=== PATIENT | female | born 1940 | race Caucasian/White ===

== ENCOUNTER 2023-11-27 03:56 | Inpatient (IN) | payer MEDICARE, SELFPAY ==
[2023-11-26 21:01] VITALS: BP 156/59; BMI 32.9
[2023-11-26 21:04] VITALS: BP 156/59
[2023-11-26 21:58] LABS: % Basophils 2.8 % (0-2); % Eosinophils 2.1 % (0-6); % Immature Granulocytes 1.4 % (0-0.5); % Lymphocytes 14.6 % (20.5-51.1); % Monocytes 5.6 % (1.7-9.3); % Neutrophils 73.5 % (42.2-75.2); Absolute Lymphocytes 0.2 10^3/uL (1.2-3.4); Absolute Monocytes 0.1 10^3/uL (0.1-0.6); Absolute Neutrophils 1.1 10^3/uL (1.4-6.5); Hematocrit 30.9 % (37.0-47.0); Hemoglobin 10.5 g/dL (12.0-16.0); Mean Corpuscular Hgb 30.6 pg (27.0-31.0); Mean Corpuscular Volume 90.1 fL (81.0-99.0); Nucleated Red Blood Cells % 2.8 %; Platelet Count 68 10^3/uL (130-400); Red Blood Cell Count 3.43 10^6/uL (4.20-5.40); Red Cell Dist. Width 15.9 % (11.5-14.5)
[2023-11-26 22:00] VITALS: BP 130/38
[2023-11-26 22:00] LABS: Lactic Acid 1.4 mmol/L (0.7-2.0)
[2023-11-26 22:03] LABS: INR 1.79
[2023-11-26 22:07] LABS: COVID-19 Antigen Negative (Negative)
[2023-11-26 22:09] LABS: ALT (SGPT) 25 U/L (0-35); AST (SGOT) 36 U/L (14-36); Albumin 4.2 g/dl (3.5-5.0); Alkaline Phosphatase 138 U/L (38-126); Blood Urea Nitrogen 24 mg/dl (7-17); Calcium 9.7 mg/dl (8.4-10.2); Carbon Dioxide 26 mmol/L (22-30); Chloride 103 mmol/L (98-107); Estimated Creatinine Clearance 67 ml/min; Glucose 194 mg/dl (70-99); Potassium 3.4 mmol/L (3.5-5.1); Sodium 137 mmol/L (135-145); Total Bilirubin 1.1 mg/dl (0.2-1.3); Total Protein 6.7 g/dl (6.3-8.2); eGFR > 60.00
[2023-11-26 22:12] LABS: NT-proBNP 1040 pg/ml; Troponin I < 0.012 ng/ml
[2023-11-26 22:33] LABS: White Blood Cell Count 1.4 10^3/uL (4.8-10.8)
--- NOTE | 2023-11-26 23:45 | EDRN ---
arrived in pt room for an introduction. Pt reported 'feeling better'. SpO2 93% on 4 L NC. Pt taken off O2 support after 2 minutes pt reported 'Feeling fine' but SpO2 was 86% on RA. Pt placed back on O2 Support 4L. Pt tolerating procedure and in no
acute distress.
[2023-11-27] VITALS (12 sets, daily range): BP systolic 99–157; BP diastolic 41–72; PULSE 62; O2SAT 95; BMI 32.0
[2023-11-27] MEDS: ROCEPHIN 2000 MG IV (00:10)
[2023-11-27] MEDS: ZITHROMAX INFUSION 250 IV (00:28)
--- NOTE | 2023-11-27 00:55 | ED.GENMED ---
History of Present Illness
General
Chief Complaint: Breathing Problem
Source: patient
Exam Limitations: none
Time Seen by Provider: 11/26/23 21:15
Nursing documentation reviewed up to this point in time: agreed with
Travel History
Have you had any contact with someone who has COVID-19?: No
Do you have any symptoms of coronavirus? Fever > 100 degrees, chills, cough, shortness of breath, sore throat, loss of taste or smell, muscle aches, or headache?: Yes
Symptoms:: SOB, FEVER
History of Present Illness
History of Present Illness:
83-year-old female presenting to the emergency department today with concerns of fever chills some degree of cough shortness of breath over the past few hours prior to arrival. Does have a history of paroxysmal A-fib currently paced, CAD
hypertension hyperlipidemia and diabetes. Denies specific chest pain abdominal pain nausea vomiting. Did get a pneumonia vaccination earlier today
Past History
Past History
ED Past Medical History: Arrthythmia (Atrial fibrillation), Cancer (Breast) and Other (Diverticulosis)
ED Past Surgical History: Other (noncontributory)
Social History
Tobacco: Non-smoker
Personal:
Review of Systems
Review of Systems
Allergies reviewed?: Yes
All Other Systems: ROS reviewed and negative except as documented in HPI and ROS
Phy Exam
Physical Exam
Physical Exam:
From GENERAL: Alert , in no apparent distress
EYE: pupils equal and reactive
NECK: Supple, no significant adenopathy.
ENT: o/p clr, mmm.
CARDIAC: Regular rate and rhythm .
LUNGS: Clear breath sounds bilaterally, no acute respiratory distress, no wheezes/rales/rhonchi
ABDOMEN: Soft, without focal tenderness, no r/g, no cvat
NEUROLOGICAL: Alert and oriented, no focal neuro deficits
SKIN: Warm and dry, skin intact.
MUSCULOSKELETAL: No edema, well perfused.
PSYCH: Normal and appropriate interaction.
Scores
Heart Failure Risk
Heart Failure Risk Score: Not Applicable
Course
Orders/Labs/Results
Orders:
Orders
11/26/23 20:59
EKG [Electrocardiogram (*1)] Urgent
Reason for Study: Shortness of Breath
EKG- Treatment ONCE
11/26/23 21:38
Complete Blood Count/With Diff Urgent
Comprehensive Metabolic Panel Urgent
Lactic Acid Q4H
Comment: ON ICE, CANCEL 2ND ORDER IF FIRST LACTIC ACID LEVEL <2
Prothrombin Time Urgent
Blood Culture Q30M
JOSE DANIEL Source: Blood/Venous
Specimen Description:
Comment: FROM 2 SEPARATE SITES
11/26/23 21:42
BNP [NT-proBNP] Urgent
COVID-19 Antigen Urgent
Source: Nasal Swab
Troponin I Urgent
Influenza A+B Rapid Molecular Urgent
JOSE DANIEL Source: Nasal Swab
Specimen Description:
11/26/23 22:15
Blood Culture Q30M
JOSE DANIEL Source: Blood/Venous
Specimen Description:
Comment: FROM 2 SEPARATE SITES
11/26/23 22:39
Chest [CR Chest - 2 Views ] Urgent
Comment:
Reason For Exam: cp
11/26/23 23:36
Azithromycin 500 mg/250 ml [Zithromax Infusion] 500 mg in 250 ml IV NOW
CefTRIAXone [Rocephin] 2,000 mg IV NOW STA
11/27/23 01:45
Lactic Acid Q4H
Comment: ON ICE, CANCEL 2ND ORDER IF FIRST LACTIC ACID LEVEL <2
Abnormal Lab Results
11/26/23
21:38
WBC 1.4 L* 10^3/uL
(4.8-10.8)
RBC 3.43 L 10^6/uL
(4.20-5.40)
Hgb 10.5 L g/dL
(12.0-16.0)
Hct 30.9 L %
(37.0-47.0)
RDW 15.9 H %
(11.5-14.5)
Plt Count 68 L 10^3/uL
(130-400)
MPV 11.0 H fL
(7.4-10.4)
Absolute Neuts (auto) 1.1 L 10^3/uL
(1.4-6.5)
Absolute Lymphs (auto) 0.2 L 10^3/uL
(1.2-3.4)
Immature Gran % 1.4 H %
(0-0.5)
Lymphocytes % 14.6 L %
(20.5-51.1)
Basophils % 2.8 H %
(0-2)
PT 21.0 H Sec
(11.4-14.6)
Potassium 3.4 L mmol/L
(3.5-5.1)
BUN 24 H mg/dl
(7-17)
Glucose 194 H mg/dl
(70-99)
Alkaline Phosphatase 138 H U/L
(38-126)
11/26/23 21:38
11/26/23 21:38
Vital Signs
Initial and Last Documented VS:
Initial Vital Signs
Pulse Ox
82
11/26/23 20:59
Last Documented Vital Signs
Temp Pulse Resp BP Pulse Ox
100.6 F H 115 31 127/52 95
11/26/23 23:00 11/27/23 00:15 11/27/23 00:15 11/27/23 00:00 11/27/23 00:15
MDM/Problems Addressed
MDM/Problems Addressed:
83-year-old female presenting to the emergency department today with concerns of fever shortness of breath cough over the past few hours. Upon arrival patient's pulse ox in the low 80s responding well to nasal cannula 2 L to the mid 90s. Was
febrile was given Tylenol. Labs obtained showing white count of 1.4 which is well below patient's baseline. Troponin negative BMP 1000 chest x-ray appears to have consolidation to the right lower lobe. Start antibiotics and admit for further
monitoring and treatment.
*Critical Care Note
Total Time (30-74mins, 75-104mins- exclusive of procedures): Not Applicable
ED Attending Note
-
Portions of this chart may have been created with voice recognition software.� Occasional wrong word or��sound alike� substitutions may have occurred due to the inherent limitations of voice recognition software.
Discharge Plan
Departure
Patient Disposition: Admit
Date of Disposition: 11/27/23
Time of Disposition: 00:58
Admit to: Med/Surg
Admit to doctor: Josesito
Presentation/result/management discussed w/ accepting MD/DO: Hospitalist
Patient with high blood pressure during this ER visit?: No
Condition: Good
Covid-19: Not Applicable
Discharge Problem:
Pneumonia, Hypoxemia, Leukopenia
Prescriptions:
No Action
aspirin 81 MG tablet,delayed release (DR/EC)
81 mg PO DAILY
lorazepam 0.5 MG tablet
0.5 mg PO DAILYPRN PRN (Reason: anxiety)
letrozole 2.5 MG tablet
2.5 mg PO DAILY
metoprolol succinate 100 MG tablet extended release 24 hr
100 mg PO BID
amoxicillin 500 MG capsule
2,000 mg PO DAILYPRN PRN (Reason: 1 hour before dentist)
metformin 500 MG tablet
500 mg PO DAILY
amlodipine 5 MG tablet
5 mg PO DAILY
simethicone [Gas-X Extra Strength] 125 MG tablet,chewable
125 mg PO DAILYPRN PRN (Reason: indigestion)
magnesium oxide 400 MG capsule
400 mg PO QPM
multivitamin [Daily Vitamin] 1 EACH tablet
1 ea PO DAILY
acetaminophen 325 MG tablet
650 mg PO BID
cetirizine 10 MG tablet
10 mg PO HS
sotalol 80 MG tablet
80 mg PO 0800,1800
warfarin [Jantoven] 5 MG tablet
5 mg PO SUMOTUWEFRSA@1800
warfarin [Jantoven] 5 MG tablet
2.5 mg PO TH@1800
cholecalciferol (vitamin D3) [Vitamin D3] 1,000 UNIT capsule
3,000 unit PO DAILY
B-complex with vitamin C [Super B/C] 1 EACH capsule
1 ea PO DAILY
calcium carbonate-vitamin D3 1 EACH tablet
2 ea PO DAILY
furosemide 40 MG tablet
40 mg PO DAILY
ascorbic acid (vitamin C) 500 MG tablet
500 mg PO DAILY
losartan 100 MG tablet
50 mg PO 0800,1800
rosuvastatin [Crestor] 40 MG tablet
40 mg PO HS
hydrocodone-acetaminophen [[place]] 1 EACH tablet
1 ea PO Q4HPRN PRN (Reason: pain) Qty: 6 0RF
ciprofloxacin HCl 1 DROP drops
1 drp ophthalmic (eye) QID Qty: 1 0RF
Referrals:
Abe Menendez MD [Family Provider] -
Interventions
Interventions:
*Risk Screen - Suicide Last Done: 11/26/23 21:01
*General Assessment Last Done: 11/26/23 21:01
*Neglect/Abuse Screening Last Done: 11/26/23 21:01
ED- Fall Risk Assessment Last Done: 11/26/23 21:11
*ED COVID-19 Vaccine History Last Done: 11/26/23 21:01
ED- Cardiac Assessment Last Done: 11/26/23 21:11
ED- Pulmonary Assessment Last Done: 11/26/23 21:11
Discharge Date and Time
Print Language: ROMANIAN
--- NOTE | 2023-11-27 01:58 | HPS.HSE ---
Family Physician
-
Family Physician: Abe Menendez
Chief Complaint
-
shortness of breath
History of Present Illness
Ms. Whitney Rhodes is a 83 yo woman with hx atrial fibrillation, breast CA, CAD, HTN, HLD, DM who presents to the ER wtih fever, chills and shortness of breath.
Patient states she was in her usual state of health this morning and received her pneumovax vaccine. Around 4 PM before dinner she had acute onset of chills and trouble breathing prompting her to come to the ER. No cough. No chest pain. No
nausea/vomiting/diarrhea. No increased LE swelling.
Patient took her evening medications. She is able to tell me she is on Xarelto and lasix 80 daily as well as metoprolol. Waiting for final med rec confirmation which will need to be done tomorrow.
Medical History
Past Medical History
Past Medical History: Reports Other (atrial fibrillation, breast CA, CAD, HTN, HLD, DM)
Past Surgical History: Reports Other
Social History
Tobacco: Former Smoker
Alcohol: None
Family History
Family History: Not pertinent
Allergies / Home Medications
Allergies reflects when Allergies were last updated in [employer].
Home Medications with original date entered in [employer]
Allergy/Medication List:
Allergies
Allergy/AdvReac Type Severity Reaction Status Date / Time
Sulfa (Sulfonamide Allergy Rash Verified 07/10/19 11:29
Antibiotics)
Home Medications
aspirin 81 mg tablet,delayed release 81 mg PO DAILY 03/17/10
letrozole 2.5 mg tablet 2.5 mg PO DAILY 03/17/10
lorazepam 0.5 mg tablet 0.5 mg PO DAILYPRN PRN anxiety 03/17/10
B-complex with vitamin C (Super B/C capsule) 1 ea PO DAILY 04/05/15
acetaminophen 325 mg tablet 650 mg PO BID 04/05/15
amlodipine 5 mg tablet 5 mg PO DAILY 04/05/15
amoxicillin 500 mg capsule 2,000 mg PO DAILYPRN PRN 1 hour before dentist 04/05/15
calcium carbonate 600 mg-vitamin D3 20 mcg (800 unit) tablet 2 ea PO DAILY 04/05/15
cetirizine 10 mg tablet 10 mg PO HS 04/05/15
cholecalciferol (vitamin D3) 25 mcg (1,000 unit) capsule (Vitamin D3) 3,000 unit PO DAILY 04/05/15
magnesium oxide 400 mg PO QPM 04/05/15
metformin 500 mg tablet 500 mg PO DAILY 04/05/15
metoprolol succinate 100 mg tablet,extended release 24 hr 100 mg PO BID 04/05/15
multivitamin (Daily Vitamin tablet) 1 ea PO DAILY 04/05/15
simethicone 125 mg chewable tablet (Gas-X Extra Strength) 125 mg PO DAILYPRN PRN indigestion 04/05/15
sotalol 80 mg tablet 80 mg PO 0800,1800 04/05/15
warfarin 5 mg tablet (Jantoven) 2.5 mg PO TH@1800 04/05/15
warfarin 5 mg tablet (Jantoven) 5 mg PO SUMOTUWEFRSA@1800 04/05/15
furosemide 40 mg tablet 40 mg PO DAILY 11/30/16
ascorbic acid (vitamin C) 500 mg tablet 500 mg PO DAILY 04/19/18
losartan 100 mg tablet 50 mg PO 0800,1800 04/19/18
rosuvastatin 40 mg tablet (Crestor) 40 mg PO HS 04/19/18
hydrocodone 5 mg-acetaminophen 325 mg tablet ([place]) 1 ea PO Q4HPRN PRN pain #6 tabs 03/13/19
ciprofloxacin HCl 0.3 % eye drops 1 drp ophthalmic (eye) QID ##1 07/10/19
Review of Systems
-
History Source: Patient
A 12 point ROS was completed and negative except as noted: Yes
Physical Exam
Vital Signs
Vital Signs
Temp Pulse Resp BP Pulse Ox
98.6 F 94 17 115/55 95
11/27/23 01:50 11/27/23 01:45 11/27/23 01:45 11/27/23 01:00 11/27/23 01:45
Physical Exam
General: No Apparent Distress and Conversant
HEENT: PERRLA
Respiratory: Decreased Breath Sounds (right lower lobe ); No Wheezes
Cardiac: S1/S2 and Regular Rhythm
GI: Soft and Non Tender
Musculoskeletal: No Edema
Skin: Warm and Dry; No Rash
Neuro: AO x 3
Psych: Calm
Laboratory Results
-
11/26/23 21:38
11/26/23 21:38
Laboratory Results
PT 21.0 Sec (11.4-14.6) H 11/26/23 21:38
INR 1.79 11/26/23 21:38
Lactic Acid Cancelled 11/27/23 01:45
Total Bilirubin 1.1 mg/dl (0.2-1.3) 11/26/23 21:38
AST 36 U/L (14-36) 11/26/23 21:38
ALT 25 U/L (0-35) 11/26/23 21:38
Alkaline Phosphatase 138 U/L (38-126) H 11/26/23 21:38
Troponin I < 0.012 ng/ml 11/26/23 21:42
Data Reviewed
-
Diagnostic Radiology: Report Reviewed by me
Lab Data: Labs Reviewed by me
Impression/Plan
-
Ms. Whitney Rhodes is a 83 yo woman with hx atrial fibrillation, breast CA, CAD, HTN, HLD, DM who presents to the ER with fever, chills and shortness of breath.
Triage VS: T 100.6 up to 102.2, P 115, RR 31, BP 127/52, SpO2 95%
LABS: WBC 1.4, Hg 10.5, PLT 68; ANC 1.1, Na 137, K+ 3.4, BUN 24, Cr 0.6, Glucose 194, lactate 1.4, liver enzymes WNL, Trop < 0.102, BNP 1040
INR 1.79
CXR with RLL Pneumonia
covid negative
MAR: Cef/Azithro
Sepsis 2/2 Community Acquired Pneumonia
Acute Hypoxic Respiratory Insufficiency 2/2 PNA
Pancytopenia in setting of sepsis
-admit to med/surg
-continue antibiotics: cef/doxy
-F/U blood cultures
-mucinex
-O2 support as needed
-monitor CBC, heme consult if pancytopenia doesn't improve with treatment of sepsis
-hold PROJECT MGR lasix in settng of sepsis
HFpEF
-hold PROJECT MGR lasix in setting of sepsis
-*lasix dose needs to be confirmed with med rec tomorrow
DM
-*awaiting med rec
-ISS low
-F/U A1c
Atrial Fibrillation
-patient able to tell me she is on Xarelto and this is confirmed on ECW, will continue
-hold Xarelto if PLT drop to less than 50
Hypokalemia
-replete
CAD
Hx Breast Cancer
awaiting med rec
DVT PPx Xarelto
FULL CODE
[2023-11-27] MEDS: KCL 40 MEQ PO (02:10)
[2023-11-27 02:55] LABS: Magnesium 1.9 mg/dl (1.6-2.3)
[2023-11-27 06:35] LABS: % Basophils 2.5 % (0-2); % Eosinophils 0.4 % (0-6); % Immature Granulocytes 0.8 % (0-0.5); % Lymphocytes 29.1 % (20.5-51.1); % Monocytes 4.5 % (1.7-9.3); % Neutrophils 62.7 % (42.2-75.2); Absolute Basophils 0.1 10^3/uL (0-0.2); Absolute Lymphocytes 0.7 10^3/uL (1.2-3.4); Absolute Monocytes 0.1 10^3/uL (0.1-0.6); Absolute Neutrophils 1.5 10^3/uL (1.4-6.5); Hemoglobin 10.1 g/dL (12.0-16.0); Mean Corp Hgb Conc. 33.7 g/dL (33.0-37.0); Mean Corpuscular Hgb 30.4 pg (27.0-31.0); Mean Corpuscular Volume 90.4 fL (81.0-99.0); Nucleated Red Blood Cells % 0.8 %; Red Blood Cell Count 3.32 10^6/uL (4.20-5.40)
[2023-11-27 06:46] LABS: White Blood Cell Count 2.4 10^3/uL (4.8-10.8)
[2023-11-27 06:55] LABS: Blood Urea Nitrogen 22 mg/dl (7-17); Calcium 9.2 mg/dl (8.4-10.2); Carbon Dioxide 24 mmol/L (22-30); Chloride 107 mmol/L (98-107); Estimated Creatinine Clearance 67 ml/min; Glucose 154 mg/dl (70-99); Magnesium 2.3 mg/dl (1.6-2.3); Potassium 3.9 mmol/L (3.5-5.1); Sodium 139 mmol/L (135-145); eGFR > 60.00
[2023-11-27] MEDS: MUCINEX 600 MG PO ×2 (08:55→20:26)
[2023-11-27] MEDS: TOPROL XL 100 MG PO ×2 (08:56→20:26)
[2023-11-27] MEDS: BETAPACE 80 MG PO ×2 (08:58→17:51)
[2023-11-27] MEDS: NOVOLOG FLEXPEN-LOW RESISTANCE SC ×2 (09:02→17:02)
[2023-11-27 09:03] LABS: Glucose - Point of Care 142 mg/dl (70-99)
[2023-11-27] MEDS: TYLENOL 650 MG PO ×2 (09:10→22:35)
[2023-11-27 09:58] LABS: Glycohemoglobin (HgbA1c) 6.9 % (4.0-5.6)
[2023-11-27 10:03] LABS: Procalcitonin 2.11 ng/ml (0.0-0.25)
[2023-11-27 10:34] LABS: Mean Platelet Volume 10.6 fL (7.4-10.4); Platelet Count 77 10^3/uL (130-400)
--- NOTE | 2023-11-27 11:36 | CM ---
CM reviewed medical records. CM met with patient in room. Patient confirmed demographics. Patient lives with independently. Patient is planning to travel to [place] next week. Patient has had a remote history of VN. No history of placement.
Patient is active with her PCP. Patient uses [facility] for medication services.
PLAN: Home no needs.
[2023-11-27 12:38] LABS: Glucose - Point of Care 153 mg/dl (70-99)
--- NOTE | 2023-11-27 12:38 | PTOTSP ---
The patient was able to ambulate in the hallway without a device with desaturation to 89% on room air (recovered to 96% once resting). Discussed the benefits of using the walker in regards to balance and energy conservation, which she expressed
understanding. Patient denied concerns regarding mobility upon return home. No PT needs identified at this time, will sign off.
[2023-11-27] MEDS: NOVOLOG FLEXPEN-LOW RESISTANCE 1 UNITS SC (13:00)
--- NOTE | 2023-11-27 14:16 | W.PN.HOSP.TC ---
Today's Communication/Plan
-
abx
incentive carloz
Assessment / Plan
Assessment / Plan
Physical Exam
General: No Apparent Distress and Conversant
HEENT: PERRLA
Respiratory: Decreased Breath Sounds (right lower lobe ); No Wheezes
Cardiac: S1/S2 and Regular Rhythm
GI: Soft and Non Tender
Musculoskeletal: No Edema
Skin: Warm and Dry; No Rash
Neuro: AO x 3
Psych: Calm
Ms. Whitney Rhodes is a 83 yo woman with hx atrial fibrillation, breast CA, CAD, HTN, HLD, DM who presents to the ER with fever, chills and shortness of breath.
Sepsis 2/2 Community Acquired Pneumonia
Acute Hypoxic Respiratory Insufficiency 2/2 PNA
Pancytopenia in setting of sepsis
-continue antibiotics: cef/doxy
-F/U blood cultures
-mucinex
-O2 support as needed
-monitor CBC
-hold TIP FIXER lasix in setting of sepsis
-incentive carloz
HFpEF
-hold TIP FIXER lasix in setting of sepsis
DM
-ISS low
-F/U A1c
Atrial Fibrillation
-patient able to tell me she is on Xarelto and this is confirmed on ECW, will continue
-hold Xarelto if PLT drop to less than 50
Hypokalemia
-monitor and replete
CAD
Hx Breast Cancer
DVT PPx Xarelto
FULL CODE
Anticipated Discharge: > 48 hours
Subjective/Interval History
-
Date of Service: November 27, 2023
Patient already feeling better
Objective Data
-
Labs:
Laboratory Results
11/27/23
06:25
WBC 2.4 L*
Hgb 10.1 L
Hct 30.0 L
Plt Count 77 L
Sodium 139
Potassium 3.9
Chloride 107
Carbon Dioxide 24
BUN 22 H
Creatinine 0.6
Glucose 154 H
Calcium 9.2
Vital Signs:
Vital Signs
Temp Pulse Resp BP Pulse Ox
98.8 F 70 16 114/48 95
11/27/23 13:49 11/27/23 13:49 11/27/23 13:49 11/27/23 13:49 11/27/23 13:49
I&O
11/26/23 11/27/23 11/28/23
06:59 06:59 06:59
Intake Total 600 / 600
Balance 600 / 600
Review of Systems
-
History Source: Patient
All other systems: Not reviewed unless documented
Data Reviewed
-
Diagnostic Radiology: Image personally visualized and interpreted and Report Reviewed by me
Labs: Labs Reviewed by me
[2023-11-27 16:57] LABS: Glucose - Point of Care 134 mg/dl (70-99)
[2023-11-27] MEDS: XARELTO 20 MG PO (17:51)
[2023-11-27] MEDS: ROCEPHIN 1000 MG IV (20:25)
[2023-11-27] MEDS: STERILE WATER FOR INJECTION 10 ML IV (20:26)
[2023-11-27] MEDS: VIBRAMYCIN 100 MG PO (20:39)
[2023-11-27 21:49] LABS: Glucose - Point of Care 165 mg/dl (70-99)
--- NOTE | 2023-11-28 03:10 | W.PN.UPDATE ---
Update Note
Progress Note Update
Patient is hypoxic with SPO2 at low to mid 80s on the 2 L of O2 that was increased to 6 L NC with no improvement, complaining of mild SOB and denied chest pain. Lung sound is diminished.
Donavon stratton ordered, chest x-ray, abg, and patient was placed midflow/8 L.
[2023-11-28 03:15] VITALS: BP 170/60
[2023-11-28] MEDS: DUONEB 3 ML INH (03:15)
--- NOTE | 2023-11-28 03:21 | PTCARENOTE ---
Addendum entered by Lashonda Wayne RN 11/28/23 03:50:
pt received a neb treatment and is on 8 L midflow satting 100%, per pt she states 'i feel much better, as you can see i am breathing better'. call michel within reach. plan of care ongoing.
Original Note:
pt found to be hypoxic upon 1900 VS, mid to high 80s on RA, pt was placed on 2 L NC around 1999. on 2 L NC satting 93%. PCT went in for 0300 VS and found pt satting low to mid 80s on the 2 L NC, this RN tried bumping pt up on o2 without success, pt
was up to 6 L NC still satting 83-86%, placed on nonrebreather. respiratory called for midflow and to assess pt. at this time pts BP elevated 178/69 and HR 105. pt had no PRN breathing treatments. this RN auscultated pts lungs-very diminished
throughout; the same assessment from beginning of RNs shift. pt came up on 99% on NRB, CRISTA Preston notified of situation, CRISTA ordered PRN duoneb, a portble CXR and ABGs.
[2023-11-28 03:52] LABS: B.E. 1.3 mmol/L; HCO3 26.6 mmol/L (21-28); PCO2 44 mmHg (32-35); PO2 174 mmHg (83-108); pH 7.39 (7.35-7.45)
[2023-11-28 05:55] VITALS: BP 139/53
[2023-11-28 06:00] VITALS: BMI 32.1
[2023-11-28 07:00] VITALS: BP 166/82
[2023-11-28] MEDS: TOPROL XL 100 MG PO ×2 (07:50→20:45)
[2023-11-28] MEDS: TYLENOL 650 MG PO ×3 (07:50→20:51)
[2023-11-28] MEDS: MUCINEX 600 MG PO ×2 (07:50→20:45)
[2023-11-28 08:00] LABS: Glucose - Point of Care 159 mg/dl (70-99)
[2023-11-28] MEDS: VIBRAMYCIN 100 MG PO ×2 (08:24→20:44)
[2023-11-28] MEDS: BETAPACE 80 MG PO ×2 (08:24→17:08)
[2023-11-28] MEDS: NOVOLOG FLEXPEN-LOW RESISTANCE 1 UNITS SC (08:37)
[2023-11-28 10:12] LABS: Hemoglobin 9.8 g/dL (12.0-16.0); Mean Corp Hgb Conc. 33.8 g/dL (33.0-37.0); Mean Corpuscular Hgb 30.8 pg (27.0-31.0); Mean Corpuscular Volume 91.2 fL (81.0-99.0); Mean Platelet Volume 11.1 fL (7.4-10.4); Platelet Count 65 10^3/uL (130-400); Red Blood Cell Count 3.18 10^6/uL (4.20-5.40); Red Cell Dist. Width 15.9 % (11.5-14.5); White Blood Cell Count 2.7 10^3/uL (4.8-10.8)
[2023-11-28 11:00] VITALS: BP 120/49
[2023-11-28 11:19] LABS: Blood Urea Nitrogen 17 mg/dl (7-17); Calcium 9.5 mg/dl (8.4-10.2); Carbon Dioxide 25 mmol/L (22-30); Chloride 105 mmol/L (98-107); Estimated Creatinine Clearance 66 ml/min; Glucose 179 mg/dl (70-99); Potassium 4.3 mmol/L (3.5-5.1); Sodium 135 mmol/L (135-145); eGFR > 60.00
[2023-11-28 12:29] LABS: Glucose - Point of Care 265 mg/dl (70-99)
[2023-11-28] MEDS: NOVOLOG FLEXPEN-LOW RESISTANCE 3 UNITS SC (13:29)
--- NOTE | 2023-11-28 13:50 | W.PN.HOSP.TC ---
Today's Communication/Plan
-
cont abx
sputum culture if expectorates
f/u blood cultures
incentive carloz/acapella
resume lasix
Assessment / Plan
Assessment / Plan
Physical Exam
General: No Apparent Distress and Conversant
HEENT: PERRLA
Respiratory: Decreased Breath Sounds (right lower lobe ); No Wheezes
Cardiac: S1/S2 and Regular Rhythm
GI: Soft and Non Tender
Musculoskeletal: No Edema
Skin: Warm and Dry; No Rash
Neuro: AO x 3
Psych: Calm
Ms. Whitney Rhodes is a 83 yo woman with hx atrial fibrillation, breast CA, CAD, HTN, HLD, DM who presents to the ER with fever, chills and shortness of breath.
Sepsis 2/2 Community Acquired Pneumonia
Acute Hypoxic Respiratory Insufficiency 2/2 PNA
Pancytopenia in setting of sepsis
-continue antibiotics: cef/doxy - broaden if decompensates
-F/U blood cultures
-mucinex
-O2 support as needed
-monitor CBC
-hold PARTNERSHIP MARKETING MANAGER lasix in setting of sepsis
-incentive carloz
-wean o2 as tolerated
-procal 2
-educated on avoiding air travel at this time
HFpEF
-resume lasix - now can be hypertensive
DM
-ISS low
-F/U A1c: 6.9
Atrial Fibrillation
-xarelto
-hold Xarelto if PLT drop to less than 50
Hypokalemia
-monitor and replete
CAD
Hx Breast Cancer
DVT PPx Xarelto
Total time spent on today's encounter was 50 minutes which included time spent in counseling the patient/family regarding diagnosis and treatment plan as listed above, goals of care, and symptom management. Case was discussed with nursing staff,
specialists, and care coordinators/case management. All labs and imaging personally reviewed by me. Remainder the time spent in detailed review of previous records, lab data, imaging, and other medical provider documentation.
Anticipated Discharge: 24 - 48 hours
Subjective/Interval History
-
Date of Service: November 28, 2023
hypoxic requiring 8L overnight, improved this AM
Objective Data
-
Labs:
Laboratory Results
11/28/23 11/28/23
03:42 09:57
WBC 2.7 L
Hgb 9.8 L
Hct 29.0 L
Plt Count 65 L
HCO3 26.6
Sodium 135
Potassium 4.3
Chloride 105
Carbon Dioxide 25
BUN 17
Creatinine 0.5 L
Glucose 179 H
Calcium 9.5
Vital Signs:
Vital Signs
Temp Pulse Resp BP Pulse Ox
98.9 F 65 18 120/49 97
11/28/23 11:00 11/28/23 11:00 11/28/23 11:00 11/28/23 11:00 11/28/23 11:00
I&O
11/27/23 11/28/23 11/29/23
06:59 06:59 06:59
Intake Total 1560 / 1560
Balance 1560 / 1560
Review of Systems
-
History Source: Patient
All other systems: Not reviewed unless documented
Data Reviewed
-
Diagnostic Radiology: Image personally visualized and interpreted and Report Reviewed by me
Labs: Labs Reviewed by me
[2023-11-28 15:00] VITALS: BP 145/56
[2023-11-28] MEDS: LASIX 80 MG PO (15:05)
[2023-11-28 16:49] LABS: Glucose - Point of Care 213 mg/dl (70-99)
[2023-11-28] MEDS: XARELTO 20 MG PO (17:06)
[2023-11-28] MEDS: NOVOLOG FLEXPEN-LOW RESISTANCE 2 UNITS SC (17:08)
[2023-11-28 19:05] VITALS: BP 138/71
[2023-11-28] MEDS: ROCEPHIN 1000 MG IV (20:44)
[2023-11-28] MEDS: STERILE WATER FOR INJECTION 10 ML IV (20:44)
[2023-11-29] VITALS (8 sets, daily range): BP systolic 107–151; BP diastolic 65–85
[2023-11-29] MEDS: TYLENOL 1000 MG PO (02:22)
--- NOTE | 2023-11-29 02:28 | PTCARENOTE ---
Pt's heart rate was bouncing from the 120's up to 132. Contacted DYE COLORIST DYER and she asked for a new temp. Pt's temp was 101.5f. Stat order for 1000mg tylenol was ordered and was given to patient. Will recheck temp.
--- NOTE | 2023-11-29 04:07 | W.PN.UPDATE ---
Update Note
Progress Note Update
RN notified MIDDLEWARE DEVELOPER HR in 120's, increased up to 135. Temp of 101.4 noted, treated with Tylenol, HR continuous to be in 120's. EKG done and noted to be accelerated Junctional rhythm 124. Will order Metoprolol 2.5mg IV and labs now.
Patient has hx of Afib CAD, on Xarelto, Sotalol and metoprolol. Patient denies any chest pain or Shortness of breath at present.
134/70 and HR was 118 at 0600
labs pending
Labs not done yet, so will reorder stat again
will Consult [employer]
[2023-11-29] MEDS: LOPRESSOR 2.5 MG IV (04:24)
[2023-11-29] MEDS: TOPROL XL 100 MG PO ×2 (06:39→21:27)
[2023-11-29 07:51] LABS: Glucose - Point of Care 148 mg/dl (70-99)
[2023-11-29] MEDS: BETAPACE 80 MG PO ×2 (07:54→17:54)
[2023-11-29] MEDS: LASIX 80 MG PO (07:55)
[2023-11-29] MEDS: NOVOLOG FLEXPEN-LOW RESISTANCE SC (07:56)
[2023-11-29] MEDS: MUCINEX 600 MG PO ×2 (07:56→21:27)
[2023-11-29] MEDS: VIBRAMYCIN 100 MG PO ×2 (07:56→21:31)
[2023-11-29] MEDS: TYLENOL 650 MG PO ×3 (08:06→21:26)
[2023-11-29 08:19] LABS: Hematocrit 29.8 % (37.0-47.0); Hemoglobin 9.8 g/dL (12.0-16.0); Mean Corp Hgb Conc. 32.9 g/dL (33.0-37.0); Mean Corpuscular Hgb 30.2 pg (27.0-31.0); Mean Corpuscular Volume 91.7 fL (81.0-99.0); Mean Platelet Volume 11.6 fL (7.4-10.4); Platelet Count 68 10^3/uL (130-400); Red Blood Cell Count 3.25 10^6/uL (4.20-5.40); Red Cell Dist. Width 15.9 % (11.5-14.5); White Blood Cell Count 2.8 10^3/uL (4.8-10.8)
[2023-11-29 08:20] LABS: Hematocrit 30.6 % (37.0-47.0); Hemoglobin 9.9 g/dL (12.0-16.0); Mean Corp Hgb Conc. 32.4 g/dL (33.0-37.0); Mean Corpuscular Hgb 30.5 pg (27.0-31.0); Mean Corpuscular Volume 94.2 fL (81.0-99.0); Mean Platelet Volume 11.7 fL (7.4-10.4); Platelet Count 65 10^3/uL (130-400); Red Blood Cell Count 3.25 10^6/uL (4.20-5.40); Red Cell Dist. Width 15.7 % (11.5-14.5); White Blood Cell Count 2.8 10^3/uL (4.8-10.8)
[2023-11-29 09:00] LABS: Magnesium 2.1 mg/dl (1.6-2.3)
[2023-11-29 09:01] LABS: Blood Urea Nitrogen 18 mg/dl (7-17); Calcium 9.6 mg/dl (8.4-10.2); Carbon Dioxide 33 mmol/L (22-30); Chloride 100 mmol/L (98-107); Estimated Creatinine Clearance 66 ml/min; Glucose 148 mg/dl (70-99); Sodium 138 mmol/L (135-145); eGFR > 60.00
[2023-11-29] MEDS: LR 1000 IV (09:01)
--- NOTE | 2023-11-29 09:13 | W.PN.CD ---
Addendum entered and electronically signed by Wei Nicolas MD 11/29/23 19:06:
Device interrogated/[facility]
no VT or NSVT
AF episode seems first real one since devuce check below
Original Note:
Today's Communication / Plan
-
.
Impression / Plan
-
Impression: 83F with PAF admitted with CAP. Last night she developed recurrent AF.
Plan:
Paroxysmal AF - I reviewed her last device check (below) and she was already having more AF.
- Rate: A bit fast. I will add diltiazem if she doesn't convert back
- Rhythm: continue sotalol
- Oral Anticoagulation: rivaroxaban
CAD s/p CABG
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
Postoperative VF s/p biventricular ICD - interrogate in AM
Hypertension - meds
CAP
Subjective: Dictated
Data
TTE Aug 2020: Normal EF, MVRe with mild MR
PET MPI Jul 2021: Normal
Gen Change Sep 2022
Cards in [place] Dr. Bear Mei [phone].
Physical Exam
Vital Signs/Labs
Vital Signs
Temp Pulse Resp BP Pulse Ox
36.7 C 128 20 137/72 94
11/29/23 07:00 11/29/23 07:55 11/29/23 07:00 11/29/23 07:55 11/29/23 07:00
11/28/23 11/29/23 11/30/23
06:59 06:59 06:59
Actual Weight 164 lb 6 oz
11/29/23 07:23
11/29/23 07:23
PT 21.0 Sec (11.4-14.6) H 11/26/23 21:38
INR 1.79 11/26/23 21:38
Magnesium 2.1 mg/dl (1.6-2.3) 11/29/23 07:23
11/26/23
21:42
Xri-I-Fuxflvgwweh Pept 1040
LAB Results
11/26/23
21:42
Troponin I < 0.012
Data Reviewed
-
Date of Service: November 29, 2023
[2023-11-29 09:17] LABS: Blood Urea Nitrogen 17 mg/dl (7-17); Calcium 9.8 mg/dl (8.4-10.2); Carbon Dioxide 31 mmol/L (22-30); Chloride 97 mmol/L (98-107); Estimated Creatinine Clearance 66 ml/min; Glucose 149 mg/dl (70-99); Magnesium 2.1 mg/dl (1.6-2.3); Sodium 139 mmol/L (135-145); eGFR > 60.00
--- NOTE | 2023-11-29 09:26 | PTCARENOTE ---
Pt HR elevated to 115-130's sustained at 0800. Morning cardiac meds given as scheduled. Pt asymptomatic. BP 137/72. On 5L NC 94%. MD notified and LR bolus initiated per MD order. Will continue to monitor BP to evaluate need for PRN metoprolol.
Awaiting cardiology consult. Call michel within reach.
[2023-11-29] MEDS: LOPRESSOR 5 MG IV ×2 (09:54→16:37)
--- NOTE | 2023-11-29 11:58 | W.PN.HOSP.TC ---
Today's Communication/Plan
-
abx
repeat cultures
wean o2
incentive carloz
add dilt if needed, appreciate cards recs
Assessment / Plan
Assessment / Plan
Physical Exam
General: No Apparent Distress and Conversant
HEENT: PERRLA
Respiratory: Decreased Breath Sounds (right lower lobe ); No Wheezes
Cardiac: S1/S2 and Regular Rhythm
GI: Soft and Non Tender
Musculoskeletal: No Edema
Skin: Warm and Dry; No Rash
Neuro: AO x 3
Psych: Calm
Ms. Whitney Rhodes is a 83 yo woman with hx atrial fibrillation, breast CA, CAD, HTN, HLD, DM who presents to the ER with fever, chills and shortness of breath.
Sepsis 2/2 Community Acquired Pneumonia
Acute Hypoxic Respiratory Insufficiency 2/2 PNA
Pancytopenia in setting of sepsis
-continue antibiotics: cef/doxy - broaden if decompensates;
-if continues to have fevers, can f/u dvt studies and possibly broaden abx
-F/U blood cultures - NGTD; repeat as recurrent fever
-mucinex
-O2 support as needed
-monitor CBC
-incentive carloz
-wean o2 as tolerated
-procal 2
-educated on avoiding air travel at this time
HFpEF
-resume lasix - has been hypertensive
DM
-ISS low
-F/U A1c: 6.9
Atrial Fibrillation
-with RVR
-xarelto
-hold Xarelto if PLT drop to less than 50
-On metoprolol and sotalol
-Lopressor IV pRN
-IF needed, add dilt
-Cardiology was consulted overnight
Hypokalemia
-monitor and replete
CAD
Hx Breast Cancer
DVT PPx Xarelto
Total time spent on today's encounter was 50 minutes which included time spent in counseling the patient/family regarding diagnosis and treatment plan as listed above, goals of care, and symptom management. Case was discussed with nursing staff,
specialists, and care coordinators/case management. All labs and imaging personally reviewed by me. Remainder the time spent in detailed review of previous records, lab data, imaging, and other medical provider documentation.
Anticipated Discharge: > 48 hours
Subjective/Interval History
-
Date of Service: November 29, 2023
went into afib with rvr overnight
Objective Data
-
Labs:
Laboratory Results
11/29/23 11/29/23 11/29/23
07:23 07:23 07:23
WBC 2.8 L 2.8 L
Hgb 9.9 L 9.8 L
Hct 30.6 L
Plt Count
Sodium
Potassium
Chloride
Carbon Dioxide
BUN
Creatinine
Glucose
Calcium
11/29/23 11/29/23 11/29/23
07:23 07:23 07:23
WBC
Hgb
Hct 29.8 L
Plt Count 65 L 68 L
Sodium 138 139
Potassium 4.0
Chloride
Carbon Dioxide
BUN
Creatinine
Glucose
Calcium
11/29/23 11/29/23 11/29/23
07:23 07:23 07:23
WBC
Hgb
Hct
Plt Count
Sodium
Potassium 4.0
Chloride 100 97 L
Carbon Dioxide 33 H 31 H
BUN 18 H
Creatinine
Glucose
Calcium
11/29/23 11/29/23 11/29/23
07:23 07:23 07:23
WBC
Hgb
Hct
Plt Count
Sodium
Potassium
Chloride
Carbon Dioxide
BUN 17
Creatinine 0.6 0.6
Glucose 148 H 149 H
Calcium 9.6
11/29/23
07:23
WBC
Hgb
Hct
Plt Count
Sodium
Potassium
Chloride
Carbon Dioxide
BUN
Creatinine
Glucose
Calcium 9.8
Vital Signs:
Vital Signs
Temp Pulse Resp BP Pulse Ox
98.2 F 125 20 137/65 93
11/29/23 11:00 11/29/23 11:00 11/29/23 11:00 11/29/23 11:00 11/29/23 11:00
I&O
11/28/23 11/29/23 11/30/23
06:59 06:59 06:59
Intake Total 1560 / 1560 780 / 780
Balance 1560 / 1560 780 / 780
Review of Systems
-
History Source: Patient
All other systems: Not reviewed unless documented
Data Reviewed
-
Diagnostic Radiology: Image personally visualized and interpreted and Report Reviewed by me
Labs: Labs Reviewed by me
[2023-11-29 12:09] LABS: Glucose - Point of Care 271 mg/dl (70-99)
[2023-11-29] MEDS: NOVOLOG FLEXPEN-LOW RESISTANCE 3 UNITS SC (12:13)
--- NOTE | 2023-11-29 13:39 | PTCARENOTE ---
Pt having runs of Vtach on monitor throughout the day, Hr sustained in 120's with Afib. PRN metoprolol given, MD and Fuels Engineer aware, no new orders at this time. Pt is asymptomatic and call michel is within reach.
[2023-11-29 17:12] LABS: Glucose - Point of Care 170 mg/dl (70-99)
[2023-11-29] MEDS: NOVOLOG FLEXPEN-LOW RESISTANCE 1 UNITS SC (17:53)
[2023-11-29] MEDS: XARELTO 20 MG PO (17:54)
[2023-11-29 21:08] LABS: Glucose - Point of Care 207 mg/dl (70-99)
[2023-11-29] MEDS: ROCEPHIN 1000 MG IV (21:28)
[2023-11-29] MEDS: STERILE WATER FOR INJECTION 10 ML IV (21:29)
[2023-11-30 03:25] VITALS: BP 133/72
[2023-11-30 06:00] VITALS: BMI 31.5
[2023-11-30 06:47] LABS: Hematocrit 29.2 % (37.0-47.0); Mean Corp Hgb Conc. 34.2 g/dL (33.0-37.0); Mean Corpuscular Hgb 30.9 pg (27.0-31.0); Mean Corpuscular Volume 90.1 fL (81.0-99.0); Platelet Count 74 10^3/uL (130-400); Red Blood Cell Count 3.24 10^6/uL (4.20-5.40); Red Cell Dist. Width 15.6 % (11.5-14.5)
[2023-11-30 06:51] LABS: White Blood Cell Count 2.3 10^3/uL (4.8-10.8)
[2023-11-30 07:00] VITALS: BP 157/72
[2023-11-30 07:17] LABS: Blood Urea Nitrogen 19 mg/dl (7-17); Calcium 9.7 mg/dl (8.4-10.2); Carbon Dioxide 30 mmol/L (22-30); Chloride 99 mmol/L (98-107); Estimated Creatinine Clearance 66 ml/min; Glucose 146 mg/dl (70-99); Potassium 3.7 mmol/L (3.5-5.1); Sodium 139 mmol/L (135-145); eGFR > 60.00
[2023-11-30] MEDS: LASIX 80 MG PO (07:41)
[2023-11-30] MEDS: MUCINEX 600 MG PO ×2 (07:42→19:58)
[2023-11-30] MEDS: TOPROL XL 100 MG PO ×2 (07:42→20:21)
[2023-11-30] MEDS: VIBRAMYCIN 100 MG PO ×2 (07:42→19:57)
[2023-11-30] MEDS: BETAPACE 80 MG PO ×2 (07:46→17:48)
[2023-11-30] MEDS: TYLENOL 650 MG PO ×2 (07:47→20:21)
[2023-11-30] MEDS: NOVOLOG FLEXPEN-LOW RESISTANCE 1 UNITS SC (07:50)
[2023-11-30 07:51] LABS: Glucose - Point of Care 155 mg/dl (70-99)
--- NOTE | 2023-11-30 08:21 | W.PN.CD ---
Impression / Plan
-
Impression: 83F with PAF admitted with CAP. Last night she developed recurrent AF.
Plan:
Paroxysmal AF -device check (below) reviewed by Dr Nicolas, she was already having more AF.
- Rate: A bit fast. I will add diltiazem if she doesn't convert back
- Rhythm: continue sotalol
- Oral Anticoagulation: rivaroxaban
CAD s/p CABG
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
Postoperative VF s/p biventricular ICD - none on device
Hypertension - meds
CAP--as per medicine
Subjective: Dictated
Data
TTE Aug 2020: Normal EF, MVRe with mild MR
PET MPI Jul 2021: Normal
Gen Change Sep 2022
Cards in [place] Dr. Bear Mei [phone].
Physical Exam
Vital Signs/Labs
Vital Signs
Temp Pulse Resp BP Pulse Ox
97.5 F 120 17 157/72 96
11/30/23 07:00 11/30/23 07:00 11/30/23 07:00 11/30/23 07:00 11/30/23 07:00
11/29/23 11/30/23 12/01/23
06:59 06:59 06:59
Actual Weight 73.21 kg
11/30/23 06:19
11/30/23 06:19
PT 21.0 Sec (11.4-14.6) H 11/26/23 21:38
INR 1.79 11/26/23 21:38
Magnesium 2.1 mg/dl (1.6-2.3) 11/29/23 07:23
Magnesium 2.1 mg/dl (1.6-2.3) 11/29/23 07:23
11/26/23
21:42
Ser-T-Gcmgotngvyb Pept 1040
Data Reviewed
-
Date of Service: November 30, 2023
--- NOTE | 2023-11-30 10:12 | W.PN.CD ---
Today's Communication / Plan
-
add diltiazem drip
device interrogation
Impression / Plan
-
Impression: 83F with paroxysmal AFib admitted with CAP. We are consulted for reurrence of A fib with RVR.
Plan:
Paroxysmal AF - SR reviewed her last device check, and she was already having more AF.
- Rate: RVR. continue Toprol XL 100mg, and add diltiazem drip at 5
- Rhythm: continue sotalol
-we discussed the topic of DCCV if she remains in Afib closer to discharge
- Oral Anticoagulation: rivaroxaban (no missed doses)
CAD s/p CABG
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
Postoperative VF s/p biventricular ICD - interrogate
Hypertension - meds
CAP
Subjective:
Still on supplemental oxygen.
Data
TTE Aug 2020: Normal EF, MVR with mild MR
PET MPI Jul 2021: Normal
Gen Change Sep 2022
Cards in [place] Dr. Bear Mei [phone].
Physical Exam
Vital Signs/Labs
Vital Signs
Temp Pulse Resp BP Pulse Ox
97.5 F 120 17 157/72 96
11/30/23 07:00 11/30/23 07:00 11/30/23 07:00 11/30/23 07:00 11/30/23 07:00
11/29/23 11/30/23 12/01/23
06:59 06:59 06:59
Actual Weight 73.21 kg
11/30/23 06:19
11/30/23 06:19
PT 21.0 Sec (11.4-14.6) H 11/26/23 21:38
INR 1.79 11/26/23 21:38
Magnesium 2.1 mg/dl (1.6-2.3) 11/29/23 07:23
Magnesium 2.1 mg/dl (1.6-2.3) 11/29/23 07:23
11/26/23
21:42
Zxp-E-Vszcvtodbuq Pept 1040
Physical Exam
Constitutional: No acute distress
EENT: Moist mucous membranes
Cardiovascular: Pedal edema is absent, JVD pressure is normal, Systolic murmur absent and Rhythm/rate is irregular
Respiratory: Respiratory effort normal
GI: Soft, Distention absent and Flat
Neuro/Psych: AO x 3
Data Reviewed
-
Date of Service: November 30, 2023
EKG: Tracing Personally Visualized and interpreted (Tele: Afib 120s)
Labs: Labs Reviewed by me
[2023-11-30] MEDS: CARDIZEM 125 IV (10:19)
[2023-11-30 11:00] VITALS: BP 121/62
[2023-11-30 11:46] LABS: Glucose - Point of Care 272 mg/dl (70-99)
[2023-11-30 12:10] VITALS: BMI 31.5
[2023-11-30] MEDS: NOVOLOG FLEXPEN-LOW RESISTANCE 3 UNITS SC (12:20)
--- NOTE | 2023-11-30 14:53 | W.PN.HOSP.TC ---
Today's Communication/Plan
-
last day abx today
cardizem drip per card
possible d/c tomorrow
Assessment / Plan
Assessment / Plan
Sepsis 2/2 Community Acquired Pneumonia - Improved
Acute Hypoxic Respiratory Insufficiency - Improved
-Patient weaned off of oxygen
-2 sets of blood culture remains negative
-Will finish 5-day course of Rocephin in hospital
Paroxysmal atrial fibrillation with RVR
S/p PPM
-Continue Xarelto
-Maintain on Cardizem drip
-Cardiology following and help appreciated
Chronic diastolic congestive heart failure
-No signs of exacerbation
-Maintained on home dose of Lasix
Pancytopenia
-in setting of sepsis?
-if not improved will need to f/u with heme onc to r/o MDS
Type II DM
-ISS low
-F/U A1c: 6.9
Hypokalemia
-monitor and replete
CAD
Hx Breast Cancer
DVT PPx Xarelto
Anticipated Discharge: Within 24 hours
Subjective/Interval History
-
Date of Service: November 30, 2023
off of oxygen
denies shortness breath
HR rapid in the night, on cardizem drip now
Objective Data
-
Labs:
Laboratory Results
11/30/23
06:19
WBC 2.3 L*
Hgb 10.0 L
Hct 29.2 L
Plt Count 74 L
Sodium 139
Potassium 3.7
Chloride 99
Carbon Dioxide 30
BUN 19 H
Creatinine 0.5 L
Glucose 146 H
Calcium 9.7
Vital Signs:
Vital Signs
Temp Pulse Resp BP Pulse Ox
98.9 F 120 17 121/62 95
11/30/23 11:00 11/30/23 11:00 11/30/23 11:00 11/30/23 11:00 11/30/23 11:00
I&O
11/29/23 11/30/23 12/01/23
06:59 06:59 06:59
Intake Total 780 / 780 1200 / 1200
Balance 780 / 780 1200 / 1200
Review of Systems
-
Respiratory: Reports No Symptoms
Cardiac: Reports No Symptoms
Abdomen/GI: Reports No Symptoms
Physical Exam
-
General: No Apparent Distress and Comfortable
HEENT: Negative Oxygen
Respiratory: Clear to Auscultation
Cardiac: Regular Rhythm and S1/S2; Negative Murmur or Rub
GI: Soft, Nontender, Nondistended and Normal Bowel Sounds
Musculoskeletal: No Edema
Neuro: Awake, Alert, Oriented, No Motor Deficits and Nonfocal/Grossly Intact
Psych: Calm
[2023-11-30 15:00] VITALS: BP 130/55
--- NOTE | 2023-11-30 16:09 | CM ---
Reviewed chart, patient functioning at baseline. Will be able to return home at discharge.
Plan: Case management will continue to follow and assist with discharge planning. Home when stable.
[2023-11-30 16:38] LABS: Glucose - Point of Care 138 mg/dl (70-99)
[2023-11-30] MEDS: NOVOLOG FLEXPEN-LOW RESISTANCE SC (16:46)
[2023-11-30] MEDS: XARELTO 20 MG PO (17:49)
[2023-11-30 19:05] VITALS: BP 149/63
[2023-11-30] MEDS: STERILE WATER FOR INJECTION 10 ML IV (20:05)
[2023-11-30] MEDS: ROCEPHIN 1000 MG IV (20:06)
[2023-11-30 21:51] LABS: Glucose - Point of Care 202 mg/dl (70-99)
--- NOTE | 2023-11-30 22:53 | PTCARENOTE ---
Pt's HR 56-58, BP 149/63. Cardizem gtt going at 5mg/hr. CRISTA Preston notified about HR. CRISTA instructed this RN to hold gtt for now. Gtt stopped at 2057. Call michel within reach. Plan of care ongoing.
[2023-11-30 23:08] VITALS: BP 146/62
[2023-12-01 03:05] VITALS: BP 146/66
[2023-12-01 06:00] VITALS: BMI 31.2
[2023-12-01 06:58] LABS: Hematocrit 29.3 % (37.0-47.0); Hemoglobin 9.7 g/dL (12.0-16.0); Mean Corp Hgb Conc. 33.1 g/dL (33.0-37.0); Mean Corpuscular Hgb 30.1 pg (27.0-31.0); Mean Platelet Volume 10.5 fL (7.4-10.4); Platelet Count 86 10^3/uL (130-400); Red Blood Cell Count 3.22 10^6/uL (4.20-5.40); Red Cell Dist. Width 15.6 % (11.5-14.5)
[2023-12-01 07:00] VITALS: BP 164/60
[2023-12-01 07:00] LABS: White Blood Cell Count 2.1 10^3/uL (4.8-10.8)
[2023-12-01 07:45] LABS: Blood Urea Nitrogen 25 mg/dl (7-17); Calcium 9.9 mg/dl (8.4-10.2); Carbon Dioxide 33 mmol/L (22-30); Chloride 99 mmol/L (98-107); Estimated Creatinine Clearance 65 ml/min; Glucose 136 mg/dl (70-99); Potassium 3.5 mmol/L (3.5-5.1); Sodium 141 mmol/L (135-145); eGFR > 60.00
[2023-12-01 07:53] LABS: Glucose - Point of Care 144 mg/dl (70-99)
[2023-12-01] MEDS: VIBRAMYCIN 100 MG PO (08:30)
[2023-12-01] MEDS: LASIX 80 MG PO (08:30)
[2023-12-01] MEDS: TOPROL XL 100 MG PO (08:30)
[2023-12-01] MEDS: MUCINEX 600 MG PO (08:30)
[2023-12-01] MEDS: BETAPACE 80 MG PO ×2 (08:32→17:06)
[2023-12-01] MEDS: NOVOLOG FLEXPEN-LOW RESISTANCE SC ×2 (08:33→17:48)
[2023-12-01] MEDS: TYLENOL 650 MG PO (08:40)
--- NOTE | 2023-12-01 09:07 | W.PN.CD ---
Today's Communication / Plan
-
Off dilt gtt
ECG today, back in SR, hopeful that improvement of CAP leads to no more AF
Evaluate to try and increase CLIENT SUPPORT ADMINISTRATOR to > 90 % and evaluate leads
We will sign off pleace call back with questions/concerns
Impression / Plan
-
Impression: 83F with paroxysmal AFib admitted with CAP. We are consulted for reurrence of A fib with RVR.
Plan:
Paroxysmal AF - SR reviewed her last device check, likely driven by CAP, back in SR
- Rate: RVR. continue Toprol XL 100mg, SHE is back in SR
- Rhythm: continue sotalol
-we discussed the topic of DCCV if she remains in Afib closer to discharge
- Oral Anticoagulation: rivaroxaban (no missed doses)
- Back in SR, not CLIENT SUPPORT ADMINISTRATOR paced >90%, will try and fix
CAD s/p CABG
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
Postoperative VF s/p biventricular ICD - interrogate
Hypertension - meds
CAP
Subjective:
Still on supplemental oxygen, wean as able
Data
TTE Aug 2020: Normal EF, MVR with mild MR
PET MPI Jul 2021: Normal
Gen Change Sep 2022
Cards in [place] Dr. Bear Mei [phone].
Physical Exam
Vital Signs/Labs
Vital Signs
Temp Pulse Resp BP Pulse Ox
97.7 F 76 17 164/60 94
12/01/23 07:00 12/01/23 07:00 12/01/23 07:00 12/01/23 07:00 12/01/23 07:00
11/30/23 12/01/23 12/02/23
06:59 06:59 06:59
Actual Weight 161 lb 6.4 oz 159 lb 9 oz
12/01/23 06:40
12/01/23 06:40
PT 21.0 Sec (11.4-14.6) H 11/26/23 21:38
INR 1.79 11/26/23 21:38
Magnesium 2.1 mg/dl (1.6-2.3) 11/29/23 07:23
Magnesium 2.1 mg/dl (1.6-2.3) 11/29/23 07:23
11/26/23
21:42
Npl-U-Mjwyqgqoonp Pept 1040
Physical Exam
Constitutional: No acute distress
EENT: Anicteric
Cardiovascular: Rhythm & rate is regular and Pedal edema is absent
Respiratory: Respiratory effort normal (poor air movement )
GI: Soft
Neuro/Psych: AO x 3
Data Reviewed
-
Date of Service: December 01, 2023
EKG: Tracing Personally Visualized and interpreted (a paced v paced )
Echo: Report Reviewed by me
Labs: Labs Reviewed by me
[2023-12-01 11:18] VITALS: BP 160/59
[2023-12-01 11:40] LABS: Glucose - Point of Care 205 mg/dl (70-99)
[2023-12-01] MEDS: NOVOLOG FLEXPEN-LOW RESISTANCE 2 UNITS SC (12:54)
--- NOTE | 2023-12-01 14:04 | CM ---
Addendum entered by KALIA Horowitz 12/01/23 15:29:
Placed a call to patient's son who confirmed that he understood that patient declined VN and did not qualify for o2. He stated that he would be in tonight to talk to her and confirmed that he will provide transportation home. Updated [facility]
.
Original Note:
Received a voice mail message from patient's son requesting return call. Returned call to patient's son, Vargas, who answered and stated that he could talk. He put his who is an RN on speakerphone. Patient's son stated that he is concerned that
patient is going to need services prior to returning home. He relayed that patient will be staying with him and his in their home and there are steps from the first floor to the second.
Reviewed patient's PT with patient's son and he relayed that he was still nervous about her returning home, therefore, VN was offered. Both patient's son and daughter in law were comfortable with that idea. Patient's son very worried about patient's
plans to go to [place] next week and requested that a medical provider talk to patient to tell her that it would not be a good idea.
Received text from attending who stated that patient is stable for discharge, and may need o2. Test ordered.
Spoke with Candy NEGRETE VN liason who stated that she will talk to patient and if she is agreeable, family, to discuss their services and relay that if patient has VN, it would be a better idea that she delay her [place] trip so that they can work with
her.
VN liason, Candy will f/u with CM to update on patient and family's decision.
Plan: Case management will continue to follow and assist with discharge planning. Home tentative with VN and o2 pending test.
--- NOTE | 2023-12-01 14:05 | W.PN.HOSP.TC ---
Addendum entered and electronically signed by Louis Estrada MD 12/02/23 14:15:
Addendum placed in response to CDI query.
Adjust diagnosis
Acute respiratory failure - resolved
Original Note:
Today's Communication/Plan
-
home o2 testing -will need arrangement if fails
d/c home
Assessment / Plan
Assessment / Plan
Sepsis 2/2 Community Acquired Pneumonia - Improved
Acute Hypoxic Respiratory Insufficiency - Improved
-Patient weaned off of oxygen
-2 sets of blood culture remains negative
-Will finish 5-day course of Rocephin in hospital
Paroxysmal atrial fibrillation with RVR
S/p PPM
-Continue Xarelto
-Taken off of Cardizem drip. Continue on home regimen of sotalol/torpol
-Cardiology following and help appreciated
Chronic diastolic congestive heart failure
-No signs of exacerbation
-Maintained on home dose of Lasix
Pancytopenia
-in setting of sepsis?
-if not improved will need to f/u with heme onc to r/o MDS
Type II DM
-ISS low
-F/U A1c: 6.9
Hypokalemia
-monitor and replete
CAD
Hx Breast Cancer
DVT PPx Xarelto
More than 30 minutes spent in discharge including
Final examination of the patient
Summarizing hospital stay
Instructions for continuing care to all relevant caregivers
Preparation of discharge records, prescriptions, and referral forms
Total time spent (in minutes): 38 mins
Anticipated Discharge: Today
Subjective/Interval History
-
Date of Service: December 01, 2023
Denies of any issues overnight
On oxygen through nasal cannula 2 L/m
Objective Data
-
Labs:
Laboratory Results
12/01/23
06:40
WBC 2.1 L*
Hgb 9.7 L
Hct 29.3 L
Plt Count 86 L
Sodium 141
Potassium 3.5
Chloride 99
Carbon Dioxide 33 H
BUN 25 H
Creatinine 0.5 L
Glucose 136 H
Calcium 9.9
Vital Signs:
Vital Signs
Temp Pulse Resp BP Pulse Ox
99.0 F 64 17 160/59 95
12/01/23 11:18 12/01/23 11:18 12/01/23 11:18 12/01/23 11:18 12/01/23 11:18
I&O
11/30/23 12/01/23 12/02/23
06:59 06:59 06:59
Intake Total 1200 / 1200 1080 / 1080
Balance 1200 / 1200 1080 / 1080
Review of Systems
-
Respiratory: Reports No Symptoms
Cardiac: Reports No Symptoms
Abdomen/GI: Reports No Symptoms
Physical Exam
-
General: No Apparent Distress and Comfortable
HEENT: Negative Oxygen
Respiratory: Clear to Auscultation
Cardiac: Regular Rhythm and S1/S2; Negative Murmur or Rub
GI: Soft, Nontender, Nondistended and Normal Bowel Sounds
Musculoskeletal: No Edema
Neuro: Awake, Alert, Oriented, No Motor Deficits and Nonfocal/Grossly Intact
Psych: Calm
[2023-12-01 14:47] VITALS: BP 113/67
--- NOTE | 2023-12-01 14:51 | PN.CDI ---
CDI
- -
CDI:
Physician Documentation Request
Admit Date: 11/27/23 03:56
Dear Doctor Sean,
Please review the following and provide your response in the progress notes.
Clinical Indicators:
PN Update, 11/27
#...hypoxic with SPO2 at low to mid 80s on the 2 L of O2
#...that was increased to 6 L NC with no improvement,
#...complaining of mild SOB and denied chest pain. Lung sound is diminished.
#...patient was placed midflow/8 L.
11/28/23 03:21 - Patient Care Note
#pt received a neb treatment and is on 8 L midflow satting 100%,
#...per pt she states 'i feel much better, as you can see i am breathing better'.
#pt found to be hypoxic upon 1900 VS, mid to high 80s on RA,
#...pt was placed on 2 L NC around 1999. on 2 L NC satting 93%.
#PCT went in for 0300 VS and found pt satting low to mid 80s on the 2 L NC,
#...this RN tried bumping pt up on o2 without success,
#pt was up to 6 L NC still satting 83-86%, placed on nonrebreather.
#...respiratory called for midflow and to assess pt.
#...at this time pts BP elevated 178/69 and HR 105.
#pt came up on 99% on NRB,
11/29/23 09:26 - Patient Care Note
#Pt HR elevated to 115-130's sustained at 0800.
#On 5L NC 94%. MD notified and LR bolus initiated per MD order.
PN, 11/29
#Sepsis 2/2 Community Acquired Pneumonia - Improved
#Acute Hypoxic Respiratory Insufficiency - Improved
#-Patient weaned off of oxygen
Please clarify which of the following accurately represents the patient's respiratory status:
Acute respiratory failure, treated,now resolved
Acute hypoxic respiratory insufficiency
Other(please specify)
Additional information for Respiratory Failure:
Recognized criteria for Respiratory Failure (Source: [employer] Hospitalist Jun 2013)
Symptoms Please indicate type if known
1. Tachypnea, SOB, dyspnea Hypoxic
2. Use of accessory muscles Hypercapnic
3. Pallor or cyanosis Hypoxic and Hypercapnic
4. Anxiety or restlessness
5. Unable to speak in full sentences
Supplemental O2 of > 40% (5LPM) Intubation is not required
Use of terms such as suspected, likely, concern for, or probable (associated with a specific diagnosis that is being evaluated, monitored, or treated as if it exists) are acceptable and can be coded in the inpatient setting, when documented at the
time of discharge.
Thank you,
Gayla Cheek RN BSN CCDS
CDI Specialist
please contact via tiger text
Please use your independent medical judgment in providing your response.
--- NOTE | 2023-12-01 15:39 | VNURNOTE ---
Home Health Liaison met with patient at 1420 to discuss [facility] nurse/therapy, visits, schedule and homebound status.
Patient is strongly declining VN and does not feel as though she needs VN.
Patient plans on flying to [place] early next week as she has appointments. Liaison tried to encourage patient to stay near and accept VN for short time to make sure she was doing well after hospitalization. Patient remains firm in her decision.
Patient's home O2 assessment completed and patient does not qualify at this time.
Patient was agreeable to have Liaison contact her daughter in law Vero.
Call to Vero who also put Vargas, patient's son on conference call.
Liaison discussed above and that the ultimate decision is up to the patient.
Liaison encouraged input from PCP regarding flight as family has asked this RN to tell patient she can't fly.
[facility] brochure provided with contact information. Patient is aware that if she changes her mind a referral can be made.
NO [facility] referral at this time.
CM updated.
[2023-12-01] MEDS: XARELTO 20 MG PO (17:06)
[2023-12-01 17:22] LABS: Glucose - Point of Care 133 mg/dl (70-99)
--- NOTE | 2023-12-02 07:36 | W.DCSUMMARY ---
Discharge Summary
Discharge Data
Date of Admission: 11/27/23
Date of Discharge: 12/01/23
-
Pending Results: No
Hospital Course
Discharging Physician : Dr Louis Estrada
Disposition :To home
Primary care physician : Dr Abe Menendez
Principal Discharge diagnosis :
Sepsis from community acquired pneumonia
Acute hypoxic respiratory insufficiency
Paroxysmal atrial fibrillation with rapid ventricular rate
Chronic Discharge diagnosis :
History of pacemaker placement
Chronic diastolic congestive heart failure
Type II diabetes mellitus
Coronary artery disease
h/o breast cancer
Hospital Course :
Patient is 83-year-old female with above-mentioned past medical history came to ER with new onset of fever chills and shortness of breath. Chest x-ray in ER suggestive of patient having possible new right lung base. Follow-up CT chest showing
small bilateral pleural effusion and small nodule opacity at right lung apex. Patient was found to having some ongoing sepsis and hypoxia with diagnosed pneumonia and was admitted for further management. Patient was started on broad-spectrum
antibiotics. 2 sets of blood cultures were collected remained negative during the hospital stay. Patient finished 5 days of antibiotic course in hospital.
Bursitis patient also have history of paroxysmal atrial fibrillation and noted to having rapid ventricular rate. Cardiology was involved in care and patient required to be started on Cardizem drip. Post improvement of sepsis patient heart rate was
better. Patient was transition to back on sotalol and home dose of Toprol-XL was increased.
Of note patient have pancytopenia and reason unclear, if persists will require to follow-up with hematology to rule out MDS.
Patient discharged home at this point with follow-up with primary care physician in office.
Important imaging findings :
None
Procedure findings :
None
Discharge Plan
-
Patient Disposition: Home (Routine Discharge)
Discharge Diagnosis/Procedures: Community acquired pneumonia, Afib/RVR, Hypoxic respiratory failure
Condition: Fair
Diet: Regular
Activity: As tolerated
Driving Restrictions: No driving
Bathing Restrictions: OK to Shower
Blood Work: CBC in 2 weeks
Activity Restrictions/Additional Instructions:
Follow up with your oncologist in 4-6 weeks
Referrals:
Chelsea Strong CRNP [Specified Professional Personl] - 12/10/23 10:00 am
Abe Menendez MD [Family Provider] - in one week
Prescriptions:
Continued
aspirin 81 MG tablet,delayed release (DR/EC)
81 mg PO DAILY
letrozole 2.5 MG tablet
2.5 mg PO DAILY
metoprolol succinate 100 MG tablet extended release 24 hr
100 mg PO BID
magnesium oxide 400 MG capsule
400 mg PO QPM
acetaminophen 325 MG tablet
650 mg PO BIDPRN PRN (Reason: mild pain)
cetirizine 10 MG tablet
10 mg PO HS
sotalol 80 MG tablet
80 mg PO 0800,1800
cholecalciferol (vitamin D3) [Vitamin D3] 1,000 UNIT capsule
1,000 unit PO DAILY
B-complex with vitamin C [Super B/C] 1 EACH capsule
1 ea PO DAILY
calcium carbonate-vitamin D3 1 EACH tablet
2 ea PO DAILY
furosemide 40 MG tablet
80 mg PO DAILY
ascorbic acid (vitamin C) 500 MG tablet
500 mg PO DAILY
rosuvastatin [Crestor] 40 MG tablet
20 mg PO HS
sennosides [senna] 8.6 mg Tablet
8.6 mg PO BIDPRN PRN (Reason: constipation)
telmisartan 80 mg Tablet
80 mg PO DAILY
Xarelto 20 mg Tablet
20 mg PO QPM
Jardiance 10 mg Tablet
10 mg PO DAILY
Discharge Orders:
Discharge Patient (As Directed); Ordered 12/01/23
Ordered By: Louis Estrada
Discharge Date and Time
Discharge Date/Time: 12/01/23 19:03
Print Language: KOSOVAN
--- NOTE | 2023-12-02 10:33 | VNURNOTE ---
Call from patient's spouse Brittny this am requesting [facility] services.
We discussed [facility] nurse visits, schedule and homebound status. Patient is now agreeable and understands that visits at home will be 2-3 x per week to assess and teach medical management. Patient has been encouraged to delay trip to [place] in order
to receive services. PCP was in touch with patient and family last evening.
Brittny is aware that [facility] will contact them for start of care in 1-2 days.
[facility] referral completed in [facility] Port.
[facility] intake notified and start of care requested for 12/02.
--- NOTE | 2023-12-14 10:13 | OID.L.PAT ---
Pulmonary Nodule Pat Letter
- -
12/14/23
EDGAR KUMAR
[address]
[place], [place] [address]
Maury HERNÁNDEZ,
A pulmonary nodule was seen on an imaging study done by [facility]. This was reviewed by the [facility] Pulmonary Nodule Advisory Board and the following recommendation was made:
Recommendation: Follow up CT Chest in 6 months
If you have any questions, please do not hesitate to contact your primary care physician. If you are in need of a Physician, you can go to [email or web address] and click on 'Find a Provider'. Type 'Family Medicine' in the search.
Oncology Nurse Navigator
[facility]
[phone]
--- NOTE | 2023-12-14 10:13 | OID.L.REC ---
Pulmonary Nodule Follow Up
- Recommendation
12/14/23
Pulmonary Nodule Review Recommendations
Your patient, EDGAR KUMAR, had a pulmonary nodule seen on an imaging study done on in the [facility] Radiology Department.
This was reviewed by the [facility] Pulmonary Nodule Advisory Board and the following recommendation was made:
Recommendation: Follow up CT Chest in 6 months
If you have any questions please do not hesitate to contact us.
Sincerely,
Oncology Nurse Navigator
[facility]
[phone]
== END 2023-12-01 19:03 | disposition home or self-care (01) | DRG 871 ==
LOC: 3 WEST ACU 03:56
PROVIDERS: Internal Medicine; Nurse Practitioner Family; Nurse Practitioner Gerontology; Physician Assistant; ADMITTING PHYSICIAN Student in an Organized Health Care Education/Training Program; ATTENDING PHYSICIAN Hospitalist; CONSULT PHYSICIAN Internal Medicine Cardiovascular Disease; EMERGENCY PHYSICIAN Emergency Medicine; FAMILY PHYSICIAN Internal Medicine
DX: A41.89 Other specified sepsis (principal); J18.9 Pneumonia, unspecified organism; J96.01 Acute respiratory failure with hypoxia; D61.818 Other pancytopenia; I50.32 Chronic diastolic (congestive) heart failure; Z11.52 Encounter for screening for COVID-19; Z79.01 Long term (current) use of anticoagulants; Z87.891 Personal history of nicotine dependence; I48.0 Paroxysmal atrial fibrillation; E11.9 Type 2 diabetes mellitus without complications; E87.6 Hypokalemia; I10 Essential (primary) hypertension; I25.10 Atherosclerotic heart disease of native coronary artery without angina pectoris; Z95.1 Presence of aortocoronary bypass graft
CPT/HCPCS: 36600; 71045; 71046; 71260; 80048; 80053; 82805; 82962; 83036; 83605; 83735; 83880; 84145; 84484; 85025; 85027; 85610; 87040; 87070; 87502; 87811; 93005; 94640; 96374; 99285; Q9967